=== PATIENT | male | born 2000 | race African-American/Black ===

== ENCOUNTER 2022-01-08 23:57 | Emergency (ER) | payer SELFPAY ==
[~2022-01-08] VITALS: Ht 162.6 cm; Wt 64.0 kg
[~2022-01-08 23:57] MED LIST: ALBU2SYR3 PO
[2022-01-09] MEDS ORDERED: LIDOCAINE HCL 1% 20ML VIAL (Pyxis) INJ INFIL ONE (02:15)
[2022-01-09 04:04] VITALS: BP 108/77
== END 2022-01-09 04:08 | disposition home or self-care (01) ==
LOC: ER 23:57
DX: S91.115A Laceration without foreign body of left lesser toe(s) without damage to nail, initial encounter (principal); S91.312A Laceration without foreign body, left foot, initial encounter; W45.8XXA Other foreign body or object entering through skin, initial encounter; W22.09XA Striking against other stationary object, initial encounter; Y93.01 Activity, walking, marching and hiking; Y92.017 Garden or yard in single-family (private) house as the place of occurrence of the external cause; R03.0 Elevated blood-pressure reading, without diagnosis of hypertension
CPT/HCPCS: 12001; 99282

== ENCOUNTER 2022-01-13 00:04 | Emergency (ER) | payer SELFPAY ==
[~2022-01-13] VITALS: Ht 162.6 cm; Wt 63.4 kg
[2022-01-13 00:20] VITALS: BP 107/54
[2022-01-13] MEDS ORDERED: BO1 TP (00:54)
== END 2022-01-13 00:55 | disposition home or self-care (01) ==
LOC: ER 00:04
DX: S91.312D Laceration without foreign body, left foot, subsequent encounter (principal); X58.XXXD Exposure to other specified factors, subsequent encounter
CPT/HCPCS: 99281; 99282